=== PATIENT | male | born 1955 | race African-American/Black ===

== ENCOUNTER 2016-04-29 10:23 | Emergency (ER) | payer MEDICARE ==
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
== END 2016-04-29 11:29 | disposition home or self-care (01) ==
LOC: BURERS 10:23
DX: S13.4XXA Sprain of ligaments of cervical spine, initial encounter (principal); I25.2 Old myocardial infarction; E78.00 Pure hypercholesterolemia, unspecified; E78.5 Hyperlipidemia, unspecified; I10 Essential (primary) hypertension; I25.10 Atherosclerotic heart disease of native coronary artery without angina pectoris; F41.9 Anxiety disorder, unspecified; F32.9 Major depressive disorder, single episode, unspecified; F17.210 Nicotine dependence, cigarettes, uncomplicated; W22.8XXA Striking against or struck by other objects, initial encounter
CPT/HCPCS: 72125

== ENCOUNTER 2016-06-04 16:12 | Emergency (ER) | payer MEDICARE | END 2016-06-04 16:40 | disposition home or self-care (01) | LOC: BURERS 16:12 | DX: M54.5 Low back pain (principal); R14.0 Abdominal distension (gaseous); I25.2 Old myocardial infarction; E78.5 Hyperlipidemia, unspecified; E78.00 Pure hypercholesterolemia, unspecified; I10 Essential (primary) hypertension; F17.210 Nicotine dependence, cigarettes, uncomplicated | CPT/HCPCS: 99283 ==

== ENCOUNTER 2016-06-07 11:29 | Emergency (ER) | payer MEDICARE ==
[2016-06-07] MEDS ORDERED: Cyclobenzaprine 10 MG TAB ONE (11:40)
[2016-06-07] MEDS ORDERED: predniSONE 20 MG TAB ONE (11:41)
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
== END 2016-06-07 12:41 | disposition home or self-care (01) ==
LOC: BURERS 11:29
DX: M54.42 Lumbago with sciatica, left side (principal); I25.2 Old myocardial infarction; E78.5 Hyperlipidemia, unspecified; E78.00 Pure hypercholesterolemia, unspecified; I10 Essential (primary) hypertension; F41.9 Anxiety disorder, unspecified; F32.9 Major depressive disorder, single episode, unspecified; F17.210 Nicotine dependence, cigarettes, uncomplicated
CPT/HCPCS: 72131; J7506

== ENCOUNTER 2016-06-29 17:32 | Emergency (ER) | payer MEDICARE ==
[2016-06-29] MEDS ORDERED: HYDROcodone/Acetaminophen 10/325 mg Tablet ONE (17:56)
[2016-06-29] MEDS ORDERED: ALPRAZolam 0.5 MG TAB ONE (17:56)
== END 2016-06-29 18:03 | disposition home or self-care (01) ==
LOC: BURERS 17:32
DX: G89.29 Other chronic pain (principal); M54.9 Dorsalgia, unspecified; I25.2 Old myocardial infarction; E78.2 Mixed hyperlipidemia; I10 Essential (primary) hypertension; I25.10 Atherosclerotic heart disease of native coronary artery without angina pectoris; F41.9 Anxiety disorder, unspecified; F32.9 Major depressive disorder, single episode, unspecified; F17.210 Nicotine dependence, cigarettes, uncomplicated
CPT/HCPCS: 99283

== ENCOUNTER 2016-07-20 22:21 | Emergency (ER) | payer MEDICARE ==
[2016-07-20] MEDS ORDERED: Metoprolol Tartrate 25 MG TAB PO SCH (22:30)
[2016-07-20] MEDS ORDERED: Clopidogrel Bisulfate 75 MG TAB PO SCH (22:30)
[2016-07-20] MEDS ORDERED: Clopidogrel Bisulfate 75 MG TAB ONE (22:34)
== END 2016-07-20 22:54 | disposition home or self-care (01) ==
LOC: BURERS 22:21
DX: I10 Essential (primary) hypertension (principal); I25.2 Old myocardial infarction; E78.5 Hyperlipidemia, unspecified; E78.00 Pure hypercholesterolemia, unspecified; I25.10 Atherosclerotic heart disease of native coronary artery without angina pectoris; F41.9 Anxiety disorder, unspecified; F32.9 Major depressive disorder, single episode, unspecified; F43.10 Post-traumatic stress disorder, unspecified; F17.210 Nicotine dependence, cigarettes, uncomplicated
CPT/HCPCS: 99283

== ENCOUNTER 2016-08-06 09:23 | Emergency (ER) | payer MEDICARE ==
[2016-08-06] MEDS ORDERED: Ketorolac Tromethamine 30 MG/ML VIAL ONE (09:30)
== END 2016-08-06 10:19 | disposition home or self-care (01) ==
LOC: BURERS 09:23
DX: M54.2 Cervicalgia (principal); G89.29 Other chronic pain; I25.2 Old myocardial infarction; E78.2 Mixed hyperlipidemia; I10 Essential (primary) hypertension; I25.10 Atherosclerotic heart disease of native coronary artery without angina pectoris; F41.9 Anxiety disorder, unspecified; F32.9 Major depressive disorder, single episode, unspecified; F17.210 Nicotine dependence, cigarettes, uncomplicated
CPT/HCPCS: 96372; J1885; J2270

== ENCOUNTER 2016-09-20 05:47 | Emergency (ER) | payer MEDICARE ==
[2016-09-20] MEDS ORDERED: diphenhydrAMINE HCl 25 MG CAP ONE (06:14)
== END 2016-09-20 06:18 | disposition home or self-care (01) ==
LOC: BURERS 05:47
DX: G47.00 Insomnia, unspecified (principal); E78.5 Hyperlipidemia, unspecified; I25.2 Old myocardial infarction; I10 Essential (primary) hypertension; F17.210 Nicotine dependence, cigarettes, uncomplicated; I25.10 Atherosclerotic heart disease of native coronary artery without angina pectoris; M19.90 Unspecified osteoarthritis, unspecified site; Z79.899 Other long term (current) drug therapy
CPT/HCPCS: 99284

== ENCOUNTER 2016-11-05 10:00 | Emergency (ER) | payer MEDICARE ==
[2016-11-05] MEDS ORDERED: Ketorolac Tromethamine 30 MG/ML VIAL ONE (10:26)
[2016-11-05 11:10] LABS: Bilirubin Negative (Negative); Blood, Urine Negative (Negative); Clarity Clear (Clear); Glucose, Urine (Dipstick) 500 mg/dL (Negative); Leukocyte Negative (Negative); Nitrite Negative (Negative); Protein, Urine (Dipstick) Negative (Neg-Trace); pH, Urine 5.5 (5.0-9.0)
== END 2016-11-05 11:43 | disposition home or self-care (01) ==
LOC: BURERS 10:01
DX: M54.42 Lumbago with sciatica, left side (principal); I25.2 Old myocardial infarction; E78.1 Pure hyperglyceridemia; I10 Essential (primary) hypertension; I25.10 Atherosclerotic heart disease of native coronary artery without angina pectoris; F43.10 Post-traumatic stress disorder, unspecified; F41.9 Anxiety disorder, unspecified; F32.9 Major depressive disorder, single episode, unspecified; F17.210 Nicotine dependence, cigarettes, uncomplicated
CPT/HCPCS: 36416; 81003; 96361; 96374; 96375; J1885; J2270

== ENCOUNTER 2016-11-08 13:28 | Emergency (ER) | payer MEDICARE ==
[2016-11-08 15:04] LABS: Clarity Clear (Clear)
[2016-11-08 15:05] LABS: Bilirubin Negative (Negative); Blood, Urine Negative (Negative); Glucose, Urine (Dipstick) 500 mg/dL (Negative); Leukocyte Negative (Negative); Nitrite Negative (Negative); Protein, Urine (Dipstick) Negative (Neg-Trace); Urobilinogen 0.2 mg/dL (0.2-1.0)
== END 2016-11-08 15:40 | disposition home or self-care (01) ==
LOC: BURERS 13:28
DX: M54.42 Lumbago with sciatica, left side (principal); E10.9 Type 1 diabetes mellitus without complications; E78.5 Hyperlipidemia, unspecified; I25.10 Atherosclerotic heart disease of native coronary artery without angina pectoris; I11.9 Hypertensive heart disease without heart failure; F17.210 Nicotine dependence, cigarettes, uncomplicated
CPT/HCPCS: 81003; 96372; J2270

== ENCOUNTER 2016-12-31 19:39 | Emergency (ER) | payer MEDICARE | END 2016-12-31 19:58 | disposition home or self-care (01) | LOC: BURERS 19:39 | DX: S30.861A Insect bite (nonvenomous) of abdominal wall, initial encounter (principal); L03.311 Cellulitis of abdominal wall; E10.9 Type 1 diabetes mellitus without complications; I25.2 Old myocardial infarction; E78.2 Mixed hyperlipidemia; I10 Essential (primary) hypertension; M19.90 Unspecified osteoarthritis, unspecified site; I25.10 Atherosclerotic heart disease of native coronary artery without angina pectoris; F41.9 Anxiety disorder, unspecified; F32.9 Major depressive disorder, single episode, unspecified; F43.10 Post-traumatic stress disorder, unspecified; F17.210 Nicotine dependence, cigarettes, uncomplicated; Z79.82 Long term (current) use of aspirin; Z79.899 Other long term (current) drug therapy; W57.XXXA Bitten or stung by nonvenomous insect and other nonvenomous arthropods, initial encounter | CPT/HCPCS: 99283 ==

== ENCOUNTER 2017-01-06 10:05 | Emergency (ER) | payer MEDICARE | END 2017-01-06 10:40 | disposition home or self-care (01) | LOC: BURERS 10:05 | DX: L02.213 Cutaneous abscess of chest wall (principal); E10.9 Type 1 diabetes mellitus without complications; I25.2 Old myocardial infarction; E78.1 Pure hyperglyceridemia; F41.9 Anxiety disorder, unspecified; F32.9 Major depressive disorder, single episode, unspecified; G89.29 Other chronic pain; I25.10 Atherosclerotic heart disease of native coronary artery without angina pectoris; I10 Essential (primary) hypertension; M19.90 Unspecified osteoarthritis, unspecified site; F17.210 Nicotine dependence, cigarettes, uncomplicated; F43.10 Post-traumatic stress disorder, unspecified; Z79.82 Long term (current) use of aspirin; Z79.891 Long term (current) use of opiate analgesic; Z79.899 Other long term (current) drug therapy | CPT/HCPCS: 10060; 87070; 87077; 87186; 87205 ==

== ENCOUNTER 2017-02-07 19:59 | Emergency (ER) | payer MEDICARE ==
[2017-02-07] MEDS ORDERED: Ondansetron ODT 4 MG TAB ONE (20:13)
[2017-02-07] MEDS ORDERED: Lorazepam 0.5 MG TAB ONE (20:23)
== END 2017-02-07 20:35 | disposition home or self-care (01) ==
LOC: BURERS 19:59
DX: F11.23 Opioid dependence with withdrawal (principal); E10.9 Type 1 diabetes mellitus without complications; I25.2 Old myocardial infarction; E78.1 Pure hyperglyceridemia; I25.10 Atherosclerotic heart disease of native coronary artery without angina pectoris; I10 Essential (primary) hypertension; F41.9 Anxiety disorder, unspecified; F32.9 Major depressive disorder, single episode, unspecified; F43.10 Post-traumatic stress disorder, unspecified; F17.210 Nicotine dependence, cigarettes, uncomplicated; Z79.82 Long term (current) use of aspirin; Z79.899 Other long term (current) drug therapy
CPT/HCPCS: 99283; Q0162

== ENCOUNTER 2018-05-09 03:10 | Emergency (ER) | payer MEDICARE ==
[2018-05-09] MEDS ORDERED: Ketorolac Tromethamine 30 MG/ML VIAL ONE (03:40)
[2018-05-09] MEDS ORDERED: ALPRAZolam 0.5 MG TAB ONE ×2 (03:41)
== END 2018-05-09 03:50 | disposition home or self-care (01) ==
LOC: BURERS 03:10
DX: G89.29 Other chronic pain (principal); M54.5 Low back pain; I25.2 Old myocardial infarction; I10 Essential (primary) hypertension; I25.10 Atherosclerotic heart disease of native coronary artery without angina pectoris; F41.9 Anxiety disorder, unspecified; F43.10 Post-traumatic stress disorder, unspecified; F17.210 Nicotine dependence, cigarettes, uncomplicated; E78.1 Pure hyperglyceridemia; Z79.891 Long term (current) use of opiate analgesic; Z79.82 Long term (current) use of aspirin; Z79.899 Other long term (current) drug therapy
CPT/HCPCS: 96372; J1885

== ENCOUNTER 2018-08-19 17:11 | Emergency (ER) | payer MEDICARE, OTHER ==
[2018-08-19] MEDS ORDERED: HYDROcodone/Acetaminophen 5/325 mg Tablet ONE (17:28)
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
== END 2018-08-19 18:32 | disposition home or self-care (01) ==
LOC: BURERS 17:11
DX: S06.0X0A Concussion without loss of consciousness, initial encounter (principal); S16.1XXA Strain of muscle, fascia and tendon at neck level, initial encounter; S29.012A Strain of muscle and tendon of back wall of thorax, initial encounter; E78.2 Mixed hyperlipidemia; E11.9 Type 2 diabetes mellitus without complications; I25.2 Old myocardial infarction; I25.10 Atherosclerotic heart disease of native coronary artery without angina pectoris; F43.10 Post-traumatic stress disorder, unspecified; F41.9 Anxiety disorder, unspecified; F32.9 Major depressive disorder, single episode, unspecified; F17.210 Nicotine dependence, cigarettes, uncomplicated; Z79.899 Other long term (current) drug therapy; Z79.82 Long term (current) use of aspirin; Z79.84 Long term (current) use of oral hypoglycemic drugs; V43.62XA Car passenger injured in collision with other type car in traffic accident, initial encounter
CPT/HCPCS: 70450; 72125; 72128

== ENCOUNTER 2018-12-04 01:29 | Emergency (ER) | payer MEDICARE ==
[2018-12-04] MEDS ORDERED: ALPRAZolam 0.5 MG TAB ONE (01:48)
[2018-12-04] MEDS ORDERED: Potassium Chloride 20 MEQ TAB ONE (01:48)
== END 2018-12-04 01:51 | disposition home or self-care (01) ==
LOC: BURERS 01:29
DX: F41.9 Anxiety disorder, unspecified (principal); E87.6 Hypokalemia; F43.10 Post-traumatic stress disorder, unspecified
CPT/HCPCS: 99283

== ENCOUNTER 2018-12-07 22:17 | Emergency (ER) | payer MEDICARE ==
[2018-12-07] MEDS ORDERED: ALPRAZolam 0.5 MG TAB ONE ×2 (22:27)
== END 2018-12-07 22:34 | disposition home or self-care (01) ==
LOC: BURERS 22:17
DX: F41.1 Generalized anxiety disorder (principal); E11.9 Type 2 diabetes mellitus without complications; I25.2 Old myocardial infarction; E78.2 Mixed hyperlipidemia; I10 Essential (primary) hypertension; F43.10 Post-traumatic stress disorder, unspecified; F43.29 Adjustment disorder with other symptoms; F17.210 Nicotine dependence, cigarettes, uncomplicated; Z79.899 Other long term (current) drug therapy; Z79.82 Long term (current) use of aspirin; Z79.84 Long term (current) use of oral hypoglycemic drugs
CPT/HCPCS: 99283

== ENCOUNTER 2018-12-23 21:55 | Emergency (ER) | payer MEDICARE ==
[2018-12-23] MEDS ORDERED: ALPRAZolam 0.5 MG TAB ONE (22:06)
== END 2018-12-23 22:23 | disposition home or self-care (01) ==
LOC: BURERS 21:55
DX: F41.9 Anxiety disorder, unspecified (principal); G47.00 Insomnia, unspecified; E11.9 Type 2 diabetes mellitus without complications; I25.2 Old myocardial infarction; E78.5 Hyperlipidemia, unspecified; E78.2 Mixed hyperlipidemia; I10 Essential (primary) hypertension; I25.10 Atherosclerotic heart disease of native coronary artery without angina pectoris; F43.10 Post-traumatic stress disorder, unspecified; F32.9 Major depressive disorder, single episode, unspecified; F17.210 Nicotine dependence, cigarettes, uncomplicated
CPT/HCPCS: 99283

== ENCOUNTER 2019-02-02 15:41 | Emergency (ER) | payer MEDICARE | END 2019-02-02 16:18 | disposition home or self-care (01) | LOC: BURERS 15:41 | DX: F41.9 Anxiety disorder, unspecified (principal); F43.10 Post-traumatic stress disorder, unspecified; I25.10 Atherosclerotic heart disease of native coronary artery without angina pectoris; I25.2 Old myocardial infarction; E11.9 Type 2 diabetes mellitus without complications; E78.5 Hyperlipidemia, unspecified; I10 Essential (primary) hypertension; F17.210 Nicotine dependence, cigarettes, uncomplicated | CPT/HCPCS: 99283 ==

== ENCOUNTER → 2019-03-18 | Emergency (ER) | payer MEDICARE ==
[~2019-03-18] MED LIST: Potassium Chloride 20 MEQ TAB ONE
== END ==
LOC: BURERS 18:47
DX: E87.6 Hypokalemia (principal); I25.2 Old myocardial infarction; E11.9 Type 2 diabetes mellitus without complications; E78.5 Hyperlipidemia, unspecified; I25.10 Atherosclerotic heart disease of native coronary artery without angina pectoris; M19.90 Unspecified osteoarthritis, unspecified site; F41.9 Anxiety disorder, unspecified; F43.10 Post-traumatic stress disorder, unspecified; F17.210 Nicotine dependence, cigarettes, uncomplicated
CPT/HCPCS: 99284

== ENCOUNTER 2019-09-29 12:02 | Emergency (ER) | payer MEDICARE ==
[2019-09-29] MEDS ORDERED: Ibuprofen 800 MG TAB ONE (12:20)
== END 2019-09-29 12:30 | disposition home or self-care (01) ==
LOC: BURERS 12:02
DX: M10.9 Gout, unspecified (principal); I25.2 Old myocardial infarction; E11.9 Type 2 diabetes mellitus without complications; E78.5 Hyperlipidemia, unspecified; M19.90 Unspecified osteoarthritis, unspecified site; I10 Essential (primary) hypertension; F41.9 Anxiety disorder, unspecified; F43.10 Post-traumatic stress disorder, unspecified; F17.210 Nicotine dependence, cigarettes, uncomplicated; I25.10 Atherosclerotic heart disease of native coronary artery without angina pectoris
CPT/HCPCS: 99283

== ENCOUNTER 2019-10-03 23:16 | Emergency (ER) | payer MEDICARE ==
[2019-10-03] MEDS ORDERED: Lorazepam 0.5 MG TAB ONE (23:26)
== END 2019-10-03 23:39 | disposition home or self-care (01) ==
LOC: BURERS 23:16
DX: F13.239 Sedative, hypnotic or anxiolytic dependence with withdrawal, unspecified (principal); F41.9 Anxiety disorder, unspecified; I25.10 Atherosclerotic heart disease of native coronary artery without angina pectoris; I25.2 Old myocardial infarction; E11.9 Type 2 diabetes mellitus without complications; E78.5 Hyperlipidemia, unspecified; I10 Essential (primary) hypertension; M19.90 Unspecified osteoarthritis, unspecified site; F32.9 Major depressive disorder, single episode, unspecified; F43.10 Post-traumatic stress disorder, unspecified; F17.210 Nicotine dependence, cigarettes, uncomplicated; Z79.899 Other long term (current) drug therapy; Z79.84 Long term (current) use of oral hypoglycemic drugs
CPT/HCPCS: 99283

== ENCOUNTER 2019-10-06 20:59 | Emergency (ER) | payer MEDICARE ==
[2019-10-06] MEDS ORDERED: ALPRAZolam 0.5 MG TAB ONE (21:14)
== END 2019-10-06 21:32 | disposition home or self-care (01) ==
LOC: BURERS 20:59
DX: F41.9 Anxiety disorder, unspecified (principal); I10 Essential (primary) hypertension; I25.2 Old myocardial infarction; E11.9 Type 2 diabetes mellitus without complications; E78.5 Hyperlipidemia, unspecified; M19.90 Unspecified osteoarthritis, unspecified site; F43.10 Post-traumatic stress disorder, unspecified; F32.9 Major depressive disorder, single episode, unspecified; F17.210 Nicotine dependence, cigarettes, uncomplicated; Z95.1 Presence of aortocoronary bypass graft
CPT/HCPCS: 99283

== ENCOUNTER 2019-10-28 08:57 | Emergency (ER) | payer MEDICARE ==
[2019-10-28 09:39] LABS: #Basophils 0.1 thou/uL (0.0-0.2); #Eosinphils 0.1 thou/uL (0.0-0.7); #Monocytes 0.5 thou/uL (0.11-0.59); #Neutrophils 3.6 thou/uL (1.40-6.50); %Basophils 2.3 % (0.0-1.0); %Lymphocytes 31.7 % (21.0-51.0); %Monocytes 7.1 % (0.0-10.0); %Neutrophils 56.9 % (42.0-75.0); Hemoglobin 13.5 g/dL (14.0-18.0); Mean Corpuscular HGB CONC 30.9 g/dL (32.0-36.0); Mean Corpuscular Hemoglobin 27.8 pg (27.0-31.0); Mean Corpuscular Volume 89.9 fL (78.0-98.0); Mean Platelet Volume 6.4 fL (7.4-10.4); Platelet Count 310 thou/uL (130-400); RBC Distribution Width 13.5 % (11.5-14.5); Red Blood Cell (RBC) Count 4.86 mill/uL (4.70-6.10); White Blood Cell (WBC) Count 6.4 thou/uL (4.8-10.8)
[2019-10-28] MEDS ORDERED: Lorazepam 2 MG/ML VIAL ONE (09:46)
[2019-10-28 09:57] LABS: ALT (SGPT) 17 U/L (8-55); AST (SGOT) 18 U/L (5-34); Acetaminophen Less than 6.0 mcg/mL (10.0-30.0); Albumin 4.5 g/dL (3.4-4.8); Alcohol Less than 10 mg/dL (Less than 10); Alkaline Phosphatase 66 U/L (40-110); Anion Gap 16 mmol/L (10-20); BUN (Urea Nitrogen) 14 mg/dL (8.4-25.7); Bilirubin, Total 0.5 mg/dL (0.2-1.2); CK (CPK) 255 U/L (30-200); Calc. Creatinine Clearance 0 mL/min (70-130); Calcium 9.4 mg/dL (7.8-10.44); Carbon Dioxide 21 mmol/L (23-31); Chloride 105 mmol/L (98-107); Estimated GFR-MDRD 46; Globulin 3.6 g/dL (2.4-3.5); Glucose 137 mg/dL (80-115); Potassium 4.2 mmol/L (3.5-5.1); Protein, Total 8.1 g/dL (5.8-8.1); Salicylate Less than 8.0 mg/dL (15.0-30.0); Sodium 138 mmol/L (136-145)
[2019-10-28 10:04] LABS: Bilirubin Negative (Negative); Blood, Urine Trace (Negative); Clarity Cloudy (Clear); Glucose, Urine (Dipstick) Negative (Negative); Ketone, Urine Negative (Negative); Leukocyte Negative (Negative); Nitrite Negative (Negative); Protein, Urine (Dipstick) 30 mg/dL (Neg-Trace)
[2019-10-28 10:10] LABS: Bacteria/HPF 2+ HPF (None Seen); RBC/HPF 0-3 HPF (0-3); Squamous Epithelial 0-3 HPF (0-3); WBC/HPF 0-3 HPF (0-3)
[2019-10-28 10:12] LABS: Cocaine Metabolite Screen Not Detected (NotDetected); Methamphetamine Not Detected (NotDetected); Mucous/LPF Rare LPF (<2+); Opiate Screen Detected (NotDetected); Phencyclidine (PCP) Not Detected (NotDetected); THC/Cannabinoid Screen Not Detected (NotDetected)
[2019-10-28 10:13] LABS: Amphetamine Not Detected (NotDetected); Barbiturates Screen Not Detected (NotDetected); Benzodiazepine Screen Detected (NotDetected); Medtox Control Line Valid? VALID (VALID); Methadone Not Detected (NotDetected); Oxycodone Screen Not Detected (NotDetected); Tricyclic Screen Detected (NotDetected)
--- NOTE | 2019-10-28 10:41 | RAD ---
CHEST 1 VIEW PORTABLE: HISTORY: Chest pain, anxiety attack. COMPARISON: 05/07/2017. FINDINGS: Heart size is normal. Postop midline sternotomy. No confluent pneumonia, overt edema, or pleural ef fusion. Anterior cervical fusion changes of the lower cervical spine. IMPRESSION: No significant acute intrathoracic disease. Stable from prior study. POS: OFF
== END 2019-10-28 11:52 | disposition home or self-care (01) ==
LOC: BURERS 08:57
DX: F41.9 Anxiety disorder, unspecified (principal); R07.89 Other chest pain; F43.10 Post-traumatic stress disorder, unspecified; I10 Essential (primary) hypertension; J45.909 Unspecified asthma, uncomplicated; I25.10 Atherosclerotic heart disease of native coronary artery without angina pectoris; I25.2 Old myocardial infarction; E11.9 Type 2 diabetes mellitus without complications; E78.5 Hyperlipidemia, unspecified; M19.90 Unspecified osteoarthritis, unspecified site; F32.9 Major depressive disorder, single episode, unspecified; F17.210 Nicotine dependence, cigarettes, uncomplicated; Z95.1 Presence of aortocoronary bypass graft; Z79.899 Other long term (current) drug therapy
CPT/HCPCS: 71045; 80053; 80306; 80307; 81003; 81015; 82550; 84443; 84484; 85025; 93005; 96361; 96374; J2060

== ENCOUNTER 2019-12-28 03:26 | Emergency (ER) | payer MEDICARE ==
[2019-12-28] MEDS ORDERED: Sulfameth/Trimethoprim DS 800-160mg TAB ONE (03:59)
== END 2019-12-28 04:02 | disposition home or self-care (01) ==
LOC: BURERS 03:26
DX: L60.0 Ingrowing nail (principal); B35.1 Tinea unguium; I25.10 Atherosclerotic heart disease of native coronary artery without angina pectoris; I25.2 Old myocardial infarction; E11.9 Type 2 diabetes mellitus without complications; E78.5 Hyperlipidemia, unspecified; I10 Essential (primary) hypertension; M19.90 Unspecified osteoarthritis, unspecified site; F41.9 Anxiety disorder, unspecified; F43.10 Post-traumatic stress disorder, unspecified; F17.210 Nicotine dependence, cigarettes, uncomplicated; Z79.82 Long term (current) use of aspirin; Z79.899 Other long term (current) drug therapy
CPT/HCPCS: 99283

== ENCOUNTER 2020-01-10 16:37 | Observation (INO) | payer MEDICARE ==
[2020-01-10 17:07] LABS: #Basophils 0.1 thou/uL (0.0-0.2); #Eosinphils 0.2 thou/uL (0.0-0.7); #Lymphocytes 3.1 thou/uL (1.20-3.40); #Monocytes 0.6 thou/uL (0.11-0.59); #Neutrophils 3.1 thou/uL (1.40-6.50); %Basophils 1.2 % (0.0-1.0); %Eosinophils 3.2 % (0.0-10.0); %Lymphocytes 44.2 % (21.0-51.0); %Monocytes 7.9 % (0.0-10.0); %Neutrophils 43.5 % (42.0-75.0); Hemoglobin 14.2 g/dL (14.0-18.0); Mean Corpuscular HGB CONC 31.6 g/dL (32.0-36.0); Mean Corpuscular Hemoglobin 28.8 pg (27.0-31.0); Mean Corpuscular Volume 91.2 fL (78.0-98.0); Mean Platelet Volume 6.8 fL (7.4-10.4); Platelet Count 332 thou/uL (130-400); RBC Distribution Width 14.2 % (11.5-14.5); Red Blood Cell (RBC) Count 4.93 mill/uL (4.70-6.10); White Blood Cell (WBC) Count 7.1 thou/uL (4.8-10.8)
[2020-01-10 17:12] LABS: Prothrombin Time 13.7 sec (12.0-14.7)
[2020-01-10 17:19] LABS: D-Dimer Test Less than 0.27 *mcg/mL (0.27-0.43)
[2020-01-10 17:24] LABS: ALT (SGPT) 16 U/L (8-55); AST (SGOT) 16 U/L (5-34); Albumin 4.5 g/dL (3.4-4.8); Alkaline Phosphatase 61 U/L (40-110); Anion Gap 17 mmol/L (10-20); BUN (Urea Nitrogen) 22 mg/dL (8.4-25.7); Bilirubin, Total 0.5 mg/dL (0.2-1.2); Calc. Creatinine Clearance 0 mL/min (70-130); Calcium 9.6 mg/dL (7.8-10.44); Carbon Dioxide 23 mmol/L (23-31); Chloride 100 mmol/L (98-107); Estimated GFR-MDRD 35; Glucose 128 mg/dL (80-115); Potassium 4.5 mmol/L (3.5-5.1); Protein, Total 8.5 g/dL (5.8-8.1); Sodium 135 mmol/L (136-145)
[2020-01-10] MEDS ORDERED: ALPRAZolam 0.5 MG TAB PO PRN ×2 (18:59→21:12)
[2020-01-10] MEDS ORDERED: hydrALAZINE 25 MG TAB PO PRN (19:03)
[2020-01-10] MEDS ORDERED: HYDROcodone/Acetaminophen 10/325 mg Tablet PO PRN (19:03)
[2020-01-10] MEDS ORDERED: Cyclobenzaprine 10 MG TAB PO PRN ×2 (19:05→21:12)
[2020-01-10] MEDS ORDERED: IMIPRAMINE HCL 50 MG PO SCH (21:00)
[2020-01-10] MEDS ORDERED: Metoprolol Tartrate 25 MG TAB PO SCH (21:00)
--- NOTE | 2020-01-10 21:06 | RAD ---
AP CHEST: 01/10/20 HISTORY: Chest pain, shortness of breath. Lungs are clear. Heart and mediastinum appear normal. Postop sternotomy changes are noted. IMPRESSION: No acute process. POS: AGW
[2020-01-10] MEDS ORDERED: Acetaminophen 500 MG TAB PO PRN (21:12)
[2020-01-10] MEDS ORDERED: traMADol HCl 50 MG TAB PO PRN (21:12)
[2020-01-10] MEDS ORDERED: hydrOXYzine 25 MG TAB PO PRN (21:12)
[2020-01-10] MEDS ORDERED: Colchicine 0.6 MG TAB PO SCH (21:15)
[2020-01-10] MEDS: Sodium Chloride 0.9% 1,000 ML IV SCH (22:56)
[2020-01-11] MEDS: Sodium Chloride 0.9% 1,000 ML IV SCH (05:11)
[2020-01-11 08:31] LABS: Anion Gap 14 mmol/L (10-20); BUN (Urea Nitrogen) 21 mg/dL (8.4-25.7); Calc. Creatinine Clearance 50 mL/min (70-130); Calcium 8.4 mg/dL (7.8-10.44); Carbon Dioxide 22 mmol/L (23-31); Chloride 105 mmol/L (98-107); Estimated GFR-MDRD 46; Glucose 119 mg/dL (80-115); Potassium 4.2 mmol/L (3.5-5.1); Sodium 137 mmol/L (136-145)
[2020-01-11] MEDS ORDERED: Furosemide 40 MG TAB PO SCH (09:00)
[2020-01-11] MEDS ORDERED: Aspirin Chewable 81 MG TAB PO SCH (09:00)
[2020-01-11] MEDS ORDERED: Metoprolol Tartrate 100 MG TAB PO SCH (09:00)
[2020-01-11] MEDS ORDERED: Clopidogrel Bisulfate 75 MG TAB PO SCH ×2 (09:00)
[2020-01-11] MEDS ORDERED: Atorvastatin Calcium 40 MG TAB PO SCH (09:00)
[2020-01-11 11:06] VITALS: BP 100/54; TEMP 97.3
[2020-01-11 17:49] LABS: SARS-CoV-2 MS2 Positive; SARS-CoV-2 N Gene Negative; SARS-CoV-2 S Gene Negative; SARS-CoV-2 by NAA Not Detected (NotDetected); SARS-CoV-2 orf1ab Negative
[2020-01-11] MEDS ORDERED: FLU VACC QS2020-21(65YR UP)/PF 240 MCG/0.7 ML SYRINGE IM ONE (21:00)
--- NOTE | 2020-01-15 05:11 | DIS ---
DATE OF ADMISSION: 01/10/2020 DATE OF DISCHARGE: 01/11/2020 ADMISSION DIAGNOSES: Acute renal failure with prerenal azotemia, dehydration, and hypotension due to hypovolemia. SECONDARY DIAGNOSES: Coronary artery disease, dyslipidemia, anxiety, and chronic back pain. PROCEDURES: On 01/10/2020, chest x-ray shows no acute process. HOSPITAL COURSE: A 64-year-old male, presented to the [facility] Emergency Department yesterday evening with complaints of generalized weakness along with feeling lightheaded and short of breath with minimal exertion. The patient described symptoms of presyncope. He denies having had any nausea, vomiting, or diarrhea; also denies any upper respiratory symptoms. He denied having any fever, chills, or diaphoresis. His symptoms have been present for approximately one week and with no improvement, prompting his arrival to the emergency department. In the emergency department, he was noted to be hypotensive, for which he received a 500 mL bolus of normal saline. Lab evaluation showed acute renal failure, other labs were largely reassuring. Secondary to the patient's dehydration resulting in hypotension and acute renal failure, he was admitted overnight and provided normal saline intravenous fluids. His creatinine improved from 2.27 to 1.80 and GFR improved from 35 to 46 via overnight intravenous fluids. As of this morning, he reports to be asymptomatic in regard to his presenting symptoms and his blood pressure has improved. As far as his usual blood pressure medications, these will be modified as follows. We will discontinue amlodipine, furosemide, and hydralazine; we will decrease lisinopril from 40 mg to 5 mg daily and metoprolol will be decreased from 100 mg twice a day to 25 mg twice a day. I will ask the patient to follow up next week in the clinic to reassess his blood pressure and hydration status. As of this time, the patient is improved in regard to his renal function and blood pressure and is amenable to discharge home with the specified modified blood pressure medication regimen and encouragement in regard to improving hydration status. DISPOSITION: The patient will discharge home and may follow up with myself next week for repeat metabolic panel and reassessment of his blood pressure. DISCHARGE MEDICATIONS: Include; 1. Tylenol 1000 mg q.8 hours p.r.n. 2. Alprazolam 0.5 mg q.8 hours p.r.n. 3. Aspirin 81 mg daily. 4. Atorvastatin 40 mg at bedtime. 5. Plavix 75 mg daily. 6. Cyclobenzaprine 10 mg q.8 hours p.r.n. 7. Hydrocodone 10/325 q.8 hours p.r.n. 8. Hydroxyzine 25 mg b.i.d. p.r.n. 9. Imipramine 50 mg daily. 10. Lisinopril 5 mg daily. 11. Metoprolol tartrate 25 mg b.i.d. Discharge time taken for the patient greater than 30 minutes. Job ID: [id number]
== END 2020-01-11 14:25 | disposition home or self-care (01) ==
LOC: BURERS 16:37 → BURMED 17:45
PROVIDERS: ADMIT Family Medicine; ATTEND Family Medicine
DX: E86.1 Hypovolemia (principal); E86.0 Dehydration; I95.9 Hypotension, unspecified; N17.9 Acute kidney failure, unspecified; I25.10 Atherosclerotic heart disease of native coronary artery without angina pectoris; E78.5 Hyperlipidemia, unspecified; F41.9 Anxiety disorder, unspecified; G89.29 Other chronic pain; M54.9 Dorsalgia, unspecified; I25.2 Old myocardial infarction; E11.9 Type 2 diabetes mellitus without complications; M19.90 Unspecified osteoarthritis, unspecified site; F32.9 Major depressive disorder, single episode, unspecified; F17.210 Nicotine dependence, cigarettes, uncomplicated; Z79.02 Long term (current) use of antithrombotics/antiplatelets; Z79.82 Long term (current) use of aspirin; Z79.84 Long term (current) use of oral hypoglycemic drugs; Z79.899 Other long term (current) drug therapy; Z88.8 Allergy status to other drugs, medicaments and biological substances; Z95.1 Presence of aortocoronary bypass graft; Z98.1 Arthrodesis status; Z20.828 Contact with and (suspected) exposure to other viral communicable diseases
CPT/HCPCS: 36415; 71045; 80048; 80053; 83605; 83880; 84484; 85025; 85379; 85610; 87635; 93005; G0378; J7050; U0003

== ENCOUNTER 2020-02-08 22:46 | Emergency (ER) | payer MEDICARE ==
[2020-02-08] MEDS ORDERED: Aspirin Chewable 81 MG TAB ONE (22:56)
[2020-02-08] MEDS ORDERED: Lorazepam 2 MG/ML VIAL ONE (23:05)
[2020-02-08] MEDS ORDERED: Metoprolol Tartrate 5 MG/5 ML VIAL ONE ×3 (23:14→23:58)
[2020-02-08 23:33] LABS: ALT (SGPT) 19 U/L (8-55); AST (SGOT) 19 U/L (5-34); Albumin 4.5 g/dL (3.4-4.8); Alkaline Phosphatase 62 U/L (40-110); Anion Gap 17 mmol/L (10-20); BUN (Urea Nitrogen) 8 mg/dL (8.4-25.7); Bilirubin, Total 0.6 mg/dL (0.2-1.2); Calc. Creatinine Clearance 0 mL/min (70-130); Calcium 9.6 mg/dL (7.8-10.44); Carbon Dioxide 23 mmol/L (23-31); Chloride 103 mmol/L (98-107); Globulin 3.9 g/dL (2.4-3.5); Glucose 103 mg/dL (80-115); Lipase 24 U/L (8-78); Potassium 3.6 mmol/L (3.5-5.1); Protein, Total 8.4 g/dL (5.8-8.1); Sodium 139 mmol/L (136-145)
--- NOTE | 2020-02-08 23:39 | RAD ---
PORTABLE CHEST: Date: 02/08/2020 PROVIDED CLINICAL HISTORY: Chest pain. FINDINGS: Comparison with 01/10/2020. Cardiac and mediastinal silhouette is within normal limits. Median sternotomy changes are seen. No fo lisa consolidation, pleural fluid, or pneumothorax apparent. IMPRESSION: No evidence for an acute cardiopulmonary process. POS: CHIN
[2020-02-08 23:43] LABS: Hemoglobin 15.6 g/dL (14.0-18.0); Mean Corpuscular HGB CONC 31.8 g/dL (32.0-36.0); Mean Corpuscular Hemoglobin 28.3 pg (27.0-31.0); Mean Corpuscular Volume 88.9 fL (78.0-98.0); Mean Platelet Volume 7.3 fL (7.4-10.4); Platelet Count 295 thou/uL (130-400); Red Blood Cell (RBC) Count 5.51 mill/uL (4.70-6.10)
[2020-02-08 23:48] LABS: Lymphocytes 33 % (21-51); MDiff Complete? YES; Monocytes 8 % (0-10); Neutrophil 55 % (42-75); Platelet Morphology Comment Appears Adequate; RBC Morphology Normal; Reactive Lymphocytes 4 % (0-10)
[2020-02-09] MEDS ORDERED: Nitroglycerin 0.4 MG TAB 1 EACH ONE (00:18)
[2020-02-09] MEDS ORDERED: Lorazepam 2 MG/ML VIAL ONE (00:31)
[2020-02-09 02:09] LABS: Bilirubin Negative (Negative); Blood, Urine Negative (Negative); Clarity Clear (Clear); Glucose, Urine (Dipstick) Negative (Negative); Ketone, Urine Negative (Negative); Leukocyte Negative (Negative); Nitrite Negative (Negative); Protein, Urine (Dipstick) Negative (Neg-Trace); Specific Gravity, Urine 1.015 (1.005-1.030); pH, Urine 6.5 (5.0-9.0)
[2020-02-09 02:14] LABS: Amphetamine Not Detected (NotDetected); Barbiturates Screen Not Detected (NotDetected); Benzodiazepine Screen Detected (NotDetected); Cocaine Metabolite Screen Not Detected (NotDetected); Medtox Control Line Valid? VALID (VALID); Methadone Not Detected (NotDetected); Methamphetamine Not Detected (NotDetected); Opiate Screen Detected (NotDetected); Oxycodone Screen Not Detected (NotDetected); Phencyclidine (PCP) Not Detected (NotDetected); THC/Cannabinoid Screen Not Detected (NotDetected); Tricyclic Screen Detected (NotDetected)
[2020-02-09 02:33] LABS: Troponin I 0.012 ng/mL (< 0.028)
== END 2020-02-09 02:20 | disposition short-term general hospital (02) ==
LOC: BURERS 22:46
DX: R07.9 Chest pain, unspecified (principal); F41.9 Anxiety disorder, unspecified; I25.10 Atherosclerotic heart disease of native coronary artery without angina pectoris; I25.2 Old myocardial infarction; E11.9 Type 2 diabetes mellitus without complications; E78.5 Hyperlipidemia, unspecified; I10 Essential (primary) hypertension; M19.90 Unspecified osteoarthritis, unspecified site; F43.10 Post-traumatic stress disorder, unspecified; Z79.82 Long term (current) use of aspirin; Z79.899 Other long term (current) drug therapy
CPT/HCPCS: 36415; 71045; 80053; 80306; 81003; 83690; 84443; 84484; 85025; 85379; 93005; 94760; 96374; 96375; 96376; J2060

== ENCOUNTER 2020-04-07 06:04 | Emergency (ER) | payer MEDICARE ==
[2020-04-07] MEDS ORDERED: Meclizine HCl 25 MG TAB ONE (06:35)
== END 2020-04-07 06:50 | disposition home or self-care (01) ==
LOC: BURERS 06:04
DX: H83.09 Labyrinthitis, unspecified ear (principal); Z79.899 Other long term (current) drug therapy; Z79.891 Long term (current) use of opiate analgesic; I25.2 Old myocardial infarction; E11.9 Type 2 diabetes mellitus without complications; E78.5 Hyperlipidemia, unspecified; I10 Essential (primary) hypertension; M19.90 Unspecified osteoarthritis, unspecified site; F17.210 Nicotine dependence, cigarettes, uncomplicated
CPT/HCPCS: 99283

== ENCOUNTER 2020-06-22 21:46 | Emergency (ER) | payer MEDICARE ==
[2020-06-22] MEDS ORDERED: ALPRAZolam 0.5 MG TAB ONE (22:17)
== END 2020-06-22 22:20 | disposition home or self-care (01) ==
LOC: BURERS 21:46
DX: F41.9 Anxiety disorder, unspecified (principal); R07.9 Chest pain, unspecified; I25.10 Atherosclerotic heart disease of native coronary artery without angina pectoris; I25.2 Old myocardial infarction; E11.9 Type 2 diabetes mellitus without complications; E78.5 Hyperlipidemia, unspecified; I10 Essential (primary) hypertension; M19.90 Unspecified osteoarthritis, unspecified site; F17.210 Nicotine dependence, cigarettes, uncomplicated; Z79.899 Other long term (current) drug therapy; Z79.82 Long term (current) use of aspirin; Z79.84 Long term (current) use of oral hypoglycemic drugs
CPT/HCPCS: 99284

== ENCOUNTER 2020-06-27 09:59 | Emergency (ER) | payer MEDICARE ==
[2020-06-27] MEDS ORDERED: Lorazepam 2 MG/ML VIAL ONE ×2 (10:18→11:33)
[2020-06-27 10:49] LABS: #Basophils 0.1 thou/uL (0.0-0.2); #Eosinphils 0.1 thou/uL (0.0-0.7); #Lymphocytes 1.5 thou/uL (1.20-3.40); #Monocytes 0.3 thou/uL (0.11-0.59); #Neutrophils 4.1 thou/uL (1.40-6.50); %Basophils 1.4 % (0.0-1.0); %Eosinophils 1.3 % (0.0-10.0); %Lymphocytes 24.9 % (21.0-51.0); %Monocytes 4.7 % (0.0-10.0); %Neutrophils 67.8 % (42.0-75.0); Hemoglobin 13.1 g/dL (14.0-18.0); Mean Corpuscular HGB CONC 32.7 g/dL (32.0-36.0); Mean Corpuscular Hemoglobin 27.9 pg (27.0-31.0); Mean Corpuscular Volume 85.5 fL (78.0-98.0); Mean Platelet Volume 6.7 fL (7.4-10.4); Platelet Count 314 thou/uL (130-400)
[2020-06-27 11:03] LABS: ALT (SGPT) 15 U/L (8-55); AST (SGOT) 20 U/L (5-34); Albumin 4.1 g/dL (3.4-4.8); Alkaline Phosphatase 67 U/L (40-110); Anion Gap 17 mmol/L (10-20); BUN (Urea Nitrogen) 10 mg/dL (8.4-25.7); Bilirubin, Total 0.5 mg/dL (0.2-1.2); Calc. Creatinine Clearance 0 mL/min (70-130); Calcium 9.1 mg/dL (7.8-10.44); Carbon Dioxide 20 mmol/L (23-31); Chloride 105 mmol/L (98-107); Globulin 3.3 g/dL (2.4-3.5); Glucose 192 mg/dL (80-115); Potassium 3.2 mmol/L (3.5-5.1); Protein, Total 7.4 g/dL (5.8-8.1); Sodium 139 mmol/L (136-145)
[2020-06-27] MEDS ORDERED: Aspirin Chewable 81 MG TAB ONE (11:49)
[2020-06-27] MEDS ORDERED: ALPRAZolam 0.5 MG TAB ONE (12:18)
== END 2020-06-27 12:29 | disposition home or self-care (01) ==
LOC: BURERS 09:59
DX: F41.9 Anxiety disorder, unspecified (principal); R07.9 Chest pain, unspecified; I25.2 Old myocardial infarction; E11.9 Type 2 diabetes mellitus without complications; E78.5 Hyperlipidemia, unspecified; I10 Essential (primary) hypertension; F17.210 Nicotine dependence, cigarettes, uncomplicated; I25.810 Atherosclerosis of coronary artery bypass graft(s) without angina pectoris
CPT/HCPCS: 36415; 71045; 80053; 83880; 84484; 85025; 93005; 96374; 96376; J2060

== ENCOUNTER 2020-07-21 16:19 | Emergency (ER) | payer MEDICARE ==
[2020-07-21] MEDS ORDERED: Aspirin Chewable 81 MG TAB ONE (17:05)
[2020-07-21] MEDS ORDERED: hydrOXYzine 25 MG TAB ONE (17:05)
[2020-07-21] MEDS ORDERED: Acetaminophen 500 MG TAB ONE (17:05)
[2020-07-21 17:20] LABS: #Basophils 0.1 thou/uL (0.0-0.2); #Eosinphils 0.2 thou/uL (0.0-0.7); #Monocytes 0.4 thou/uL (0.11-0.59); #Neutrophils 3.7 thou/uL (1.40-6.50); %Basophils 1.5 % (0.0-1.0); %Eosinophils 3.5 % (0.0-10.0); %Lymphocytes 30.7 % (21.0-51.0); %Neutrophils 58.3 % (42.0-75.0); Hemoglobin 13.7 g/dL (14.0-18.0); Mean Corpuscular HGB CONC 31.7 g/dL (32.0-36.0); Mean Corpuscular Volume 85.2 fL (78.0-98.0); Mean Platelet Volume 6.2 fL (7.4-10.4); Platelet Count 397 thou/uL (130-400); RBC Distribution Width 14.3 % (11.5-14.5); Red Blood Cell (RBC) Count 5.08 mill/uL (4.70-6.10); White Blood Cell (WBC) Count 6.4 thou/uL (4.8-10.8)
[2020-07-21 17:39] LABS: ALT (SGPT) 22 U/L (8-55); AST (SGOT) 24 U/L (5-34); Albumin 4.5 g/dL (3.4-4.8); Alkaline Phosphatase 75 U/L (40-110); Anion Gap 14 mmol/L (10-20); BUN (Urea Nitrogen) 11 mg/dL (8.4-25.7); Bilirubin, Total 0.5 mg/dL (0.2-1.2); Calc. Creatinine Clearance 0 mL/min (70-130); Calcium 9.6 mg/dL (7.8-10.44); Carbon Dioxide 26 mmol/L (23-31); Chloride 104 mmol/L (98-107); Globulin 3.8 g/dL (2.4-3.5); Glucose 136 mg/dL (80-115); Lipase 50 U/L (8-78); Potassium 3.6 mmol/L (3.5-5.1); Protein, Total 8.3 g/dL (5.8-8.1); Sodium 140 mmol/L (136-145)
[2020-07-21 19:05] LABS: Acetaminophen Less than 6.0 mcg/mL (10.0-30.0); Alcohol Less than 10 mg/dL (Less than 10); CK (CPK) 385 U/L (30-200); Salicylate Less than 8.0 mg/dL (15.0-30.0)
[2020-07-21] MEDS ORDERED: Lorazepam 0.5 MG TAB ONE (19:19)
[2020-07-21 19:22] LABS: THC/Cannabinoid Screen Not Detected (NotDetected)
[2020-07-21 19:23] LABS: Amphetamine Not Detected (NotDetected); Barbiturates Screen Not Detected (NotDetected); Benzodiazepine Screen Detected (NotDetected); Cocaine Metabolite Screen Not Detected (NotDetected); Medtox Control Line Valid? VALID (VALID); Methadone Not Detected (NotDetected); Methamphetamine Not Detected (NotDetected); Opiate Screen Detected (NotDetected); Oxycodone Screen Not Detected (NotDetected); Phencyclidine (PCP) Not Detected (NotDetected); Tricyclic Screen Detected (NotDetected)
[2020-07-21] MEDS ORDERED: ALPRAZolam 0.5 MG TAB ONE (20:13)
[2020-07-22] MEDS ORDERED: ALPRAZolam 0.5 MG TAB ONE (00:05)
[2020-07-22] MEDS ORDERED: Metoprolol Tartrate 5 MG/5 ML VIAL ONE (01:03)
== END 2020-07-22 01:59 | disposition home or self-care (01) ==
LOC: BURERS 16:19
DX: F43.20 Adjustment disorder, unspecified (principal); F41.9 Anxiety disorder, unspecified; F13.20 Sedative, hypnotic or anxiolytic dependence, uncomplicated; F43.10 Post-traumatic stress disorder, unspecified; I25.10 Atherosclerotic heart disease of native coronary artery without angina pectoris; I25.2 Old myocardial infarction; E11.9 Type 2 diabetes mellitus without complications; E78.5 Hyperlipidemia, unspecified; I10 Essential (primary) hypertension; M19.90 Unspecified osteoarthritis, unspecified site; F17.210 Nicotine dependence, cigarettes, uncomplicated; Z79.899 Other long term (current) drug therapy; Z79.82 Long term (current) use of aspirin; Z79.84 Long term (current) use of oral hypoglycemic drugs
CPT/HCPCS: 36415; 71045; 80053; 80306; 80307; 82550; 83690; 84443; 84484; 85025; 93005

== ENCOUNTER 2020-08-17 08:02 | Emergency (ER) | payer MEDICARE | END 2020-08-17 08:45 | disposition home or self-care (01) | LOC: BURERS 08:02 | DX: G47.00 Insomnia, unspecified (principal); T43.295A Adverse effect of other antidepressants, initial encounter; F41.9 Anxiety disorder, unspecified; I25.10 Atherosclerotic heart disease of native coronary artery without angina pectoris; I25.2 Old myocardial infarction; E11.9 Type 2 diabetes mellitus without complications; E78.5 Hyperlipidemia, unspecified; I10 Essential (primary) hypertension; M19.90 Unspecified osteoarthritis, unspecified site; F17.210 Nicotine dependence, cigarettes, uncomplicated; Z79.899 Other long term (current) drug therapy; Z79.82 Long term (current) use of aspirin; Z79.84 Long term (current) use of oral hypoglycemic drugs | CPT/HCPCS: 99283 ==

== ENCOUNTER 2020-08-18 05:39 | Emergency (ER) | payer MEDICARE | END 2020-08-18 06:08 | disposition home or self-care (01) | LOC: BURERS 05:39 | DX: G47.00 Insomnia, unspecified (principal); I25.10 Atherosclerotic heart disease of native coronary artery without angina pectoris; I25.2 Old myocardial infarction; E11.9 Type 2 diabetes mellitus without complications; E78.5 Hyperlipidemia, unspecified; I10 Essential (primary) hypertension; M19.90 Unspecified osteoarthritis, unspecified site; F17.210 Nicotine dependence, cigarettes, uncomplicated; Z79.899 Other long term (current) drug therapy; Z79.82 Long term (current) use of aspirin; Z79.84 Long term (current) use of oral hypoglycemic drugs; Z79.02 Long term (current) use of antithrombotics/antiplatelets | CPT/HCPCS: 99283 ==

== ENCOUNTER 2020-08-27 01:45 | Emergency (ER) | payer MEDICARE ==
[2020-08-27 02:31] LABS: #Basophils 0.1 thou/uL (0.0-0.2); #Eosinphils 0.2 thou/uL (0.0-0.7); #Lymphocytes 2.4 thou/uL (1.20-3.40); #Monocytes 0.6 thou/uL (0.11-0.59); %Basophils 1.1 % (0.0-1.0); %Eosinophils 2.7 % (0.0-10.0); %Lymphocytes 38.3 % (21.0-51.0); %Monocytes 9.8 % (0.0-10.0); Mean Corpuscular HGB CONC 31.3 g/dL (32.0-36.0); Mean Corpuscular Hemoglobin 25.8 pg (27.0-31.0); Mean Corpuscular Volume 82.4 fL (78.0-98.0); Mean Platelet Volume 5.9 fL (7.4-10.4); Platelet Count 403 thou/uL (130-400); RBC Distribution Width 13.9 % (11.5-14.5); Red Blood Cell (RBC) Count 4.27 mill/uL (4.70-6.10); White Blood Cell (WBC) Count 6.2 thou/uL (4.8-10.8)
[2020-08-27 02:46] LABS: ALT (SGPT) 12 U/L (8-55); AST (SGOT) 18 U/L (5-34); Albumin 4.1 g/dL (3.4-4.8); Alkaline Phosphatase 53 U/L (40-110); Anion Gap 15 mmol/L (10-20); BUN (Urea Nitrogen) 9 mg/dL (8.4-25.7); Bilirubin, Total 0.5 mg/dL (0.2-1.2); Calc. Creatinine Clearance 0 mL/min (70-130); Calcium 9.1 mg/dL (7.8-10.44); Carbon Dioxide 26 mmol/L (23-31); Chloride 104 mmol/L (98-107); Globulin 3.2 g/dL (2.4-3.5); Glucose 94 mg/dL (80-115); Potassium 3.1 mmol/L (3.5-5.1); Protein, Total 7.3 g/dL (5.8-8.1); Sodium 142 mmol/L (136-145)
== END 2020-08-27 03:06 | disposition home or self-care (01) ==
LOC: BURERS 01:45
DX: R42 Dizziness and giddiness (principal); I65.29 Occlusion and stenosis of unspecified carotid artery; I25.10 Atherosclerotic heart disease of native coronary artery without angina pectoris; I25.2 Old myocardial infarction; E11.9 Type 2 diabetes mellitus without complications; I10 Essential (primary) hypertension; M19.90 Unspecified osteoarthritis, unspecified site; F17.210 Nicotine dependence, cigarettes, uncomplicated; Z79.82 Long term (current) use of aspirin; Z79.899 Other long term (current) drug therapy
CPT/HCPCS: 36415; 71045; 80053; 84484; 85025; 93005

== ENCOUNTER 2020-12-08 05:04 | Emergency (ER) | payer MEDICARE ==
[2020-12-08] MEDS ORDERED: Lorazepam 0.5 MG TAB ONE (05:30)
== END 2020-12-08 05:33 | disposition home or self-care (01) ==
LOC: BURERS 05:04
DX: F41.9 Anxiety disorder, unspecified (principal); I25.10 Atherosclerotic heart disease of native coronary artery without angina pectoris; I25.2 Old myocardial infarction; E11.9 Type 2 diabetes mellitus without complications; E78.5 Hyperlipidemia, unspecified; I10 Essential (primary) hypertension; F17.210 Nicotine dependence, cigarettes, uncomplicated; Z79.82 Long term (current) use of aspirin; Z79.02 Long term (current) use of antithrombotics/antiplatelets; Z79.899 Other long term (current) drug therapy; Z79.84 Long term (current) use of oral hypoglycemic drugs
CPT/HCPCS: 99283

== ENCOUNTER 2020-12-13 21:26 | Emergency (ER) | payer MEDICARE ==
[2020-12-13] MEDS ORDERED: Lorazepam 0.5 MG TAB ONE ×2 (22:15→22:17)
[2020-12-13] MEDS ORDERED: ALPRAZolam 0.5 MG TAB ONE (22:19)
== END 2020-12-13 22:22 | disposition home or self-care (01) ==
LOC: BURERS 21:26
DX: F41.0 Panic disorder [episodic paroxysmal anxiety] (principal); I25.10 Atherosclerotic heart disease of native coronary artery without angina pectoris; I25.2 Old myocardial infarction; E11.9 Type 2 diabetes mellitus without complications; E78.5 Hyperlipidemia, unspecified; I10 Essential (primary) hypertension; M19.90 Unspecified osteoarthritis, unspecified site; F17.210 Nicotine dependence, cigarettes, uncomplicated; Z79.82 Long term (current) use of aspirin; Z79.899 Other long term (current) drug therapy; Z79.891 Long term (current) use of opiate analgesic
CPT/HCPCS: 99283

== ENCOUNTER 2021-02-11 14:30 | Emergency (ER) | payer MEDICARE | END 2021-02-11 16:15 | disposition home or self-care (01) | LOC: BURERS 14:30 | DX: F41.9 Anxiety disorder, unspecified (principal); G47.00 Insomnia, unspecified; I10 Essential (primary) hypertension; E11.9 Type 2 diabetes mellitus without complications; I25.10 Atherosclerotic heart disease of native coronary artery without angina pectoris; I25.2 Old myocardial infarction; E78.5 Hyperlipidemia, unspecified; M19.90 Unspecified osteoarthritis, unspecified site; F17.210 Nicotine dependence, cigarettes, uncomplicated; Z79.82 Long term (current) use of aspirin; Z79.84 Long term (current) use of oral hypoglycemic drugs; Z79.899 Other long term (current) drug therapy | CPT/HCPCS: 99283 ==

== ENCOUNTER 2021-03-02 01:47 | Emergency (ER) | payer MEDICARE | END 2021-03-02 02:14 | disposition home or self-care (01) | LOC: BURERS 01:47 | DX: Z76.0 Encounter for issue of repeat prescription (principal); F41.9 Anxiety disorder, unspecified; I25.2 Old myocardial infarction; I10 Essential (primary) hypertension; E11.9 Type 2 diabetes mellitus without complications; I25.10 Atherosclerotic heart disease of native coronary artery without angina pectoris; M19.90 Unspecified osteoarthritis, unspecified site; E78.5 Hyperlipidemia, unspecified; F17.210 Nicotine dependence, cigarettes, uncomplicated; Z79.899 Other long term (current) drug therapy; Z79.82 Long term (current) use of aspirin | CPT/HCPCS: 99281 ==

== ENCOUNTER 2021-03-09 15:05 | Inpatient (IN) | payer MEDICARE ==
[2021-03-09 17:51] VITALS: BMI 29.7
[2021-03-09] MEDS ORDERED: Ondansetron ODT 4 MG TAB SL PRN (18:56)
[2021-03-09] MEDS ORDERED: Senokot S 8.6-50 MG TAB PO PRN (18:58)
[2021-03-09] MEDS ORDERED: Nicotine 14 MG PATCH TD PRN (19:55)
[2021-03-09] MEDS ORDERED: Acetaminophen 325 MG TAB PO PRN (19:55)
[2021-03-09] MEDS ORDERED: ALPRAZolam 0.5 MG TAB PO PRN (19:59)
[2021-03-09] MEDS: Famotidine 20 MG TAB PO SCH (20:19)
[2021-03-09] MEDS: Rosuvastatin 10 MG TAB PO SCH (20:19)
[2021-03-09] MEDS: Metoprolol Tartrate 25 MG TAB PO SCH (20:20)
[2021-03-09] MEDS: HYDROcodone/Acetaminophen 10/325 mg Tablet PO PRN (20:20)
[2021-03-09] MEDS: Cyclobenzaprine 10 MG TAB PO PRN (20:20)
[2021-03-09] MEDS: ALPRAZolam 0.5 MG TAB PO SCH (20:20)
[2021-03-09] MEDS: IMIPRAMINE HCL 50 MG PO SCH (21:08)
[2021-03-10] MEDS: HYDROcodone/Acetaminophen 10/325 mg Tablet PO PRN ×3 (08:44→23:23)
[2021-03-10] MEDS: Metoprolol Tartrate 25 MG TAB PO SCH ×2 (08:47→21:25)
[2021-03-10] MEDS: Famotidine 20 MG TAB PO SCH ×2 (08:47→21:25)
[2021-03-10] MEDS: Furosemide 40 MG TAB PO SCH (08:48)
[2021-03-10] MEDS: Lisinopril 5 MG TAB PO SCH (08:48)
[2021-03-10] MEDS: Potassium Chloride 20 MEQ TAB PO SCH (08:48)
[2021-03-10] MEDS: Aspirin Chewable 81 MG TAB PO SCH (08:48)
[2021-03-10] MEDS: Clopidogrel Bisulfate 75 MG TAB PO SCH (08:48)
[2021-03-10] MEDS: Folic Acid 1 MG TAB PO SCH (08:48)
[2021-03-10] MEDS: Amlodipine 10 MG TAB PO SCH (08:50)
[2021-03-10] MEDS ORDERED: Acetaminophen 325 MG TAB PO PRN (13:24)
[2021-03-10] MEDS: IMIPRAMINE HCL 50 MG PO SCH (20:12)
[2021-03-10] MEDS: Cyclobenzaprine 10 MG TAB PO PRN (21:25)
[2021-03-10] MEDS: Rosuvastatin 10 MG TAB PO SCH (21:25)
[2021-03-10] MEDS: ALPRAZolam 0.5 MG TAB PO SCH (21:26)
[2021-03-11 05:55] VITALS: TEMP 97.9
[2021-03-11] MEDS: Famotidine 20 MG TAB PO SCH (10:57)
[2021-03-11] MEDS: Lisinopril 5 MG TAB PO SCH (10:57)
[2021-03-11] MEDS: Amlodipine 10 MG TAB PO SCH (10:58)
[2021-03-11] MEDS: Clopidogrel Bisulfate 75 MG TAB PO SCH (10:58)
[2021-03-11] MEDS: Metoprolol Tartrate 25 MG TAB PO SCH (10:58)
[2021-03-11] MEDS: Potassium Chloride 20 MEQ TAB PO SCH (10:59)
[2021-03-11] MEDS: Folic Acid 1 MG TAB PO SCH (10:59)
[2021-03-11] MEDS: Furosemide 40 MG TAB PO SCH (10:59)
[2021-03-11] MEDS: Aspirin Chewable 81 MG TAB PO SCH (10:59)
[2021-03-11 11:01] VITALS: BP 156/88
[2021-03-11] MEDS: HYDROcodone/Acetaminophen 10/325 mg Tablet PO PRN (11:06)
== END 2021-03-11 16:15 | disposition home or self-care (01) | DRG 948 ==
LOC: BURMED 15:05
PROVIDERS: ADMIT Family Medicine; ATTEND Family Medicine
DX: R53.1 Weakness (principal); I10 Essential (primary) hypertension; E11.9 Type 2 diabetes mellitus without complications; G89.29 Other chronic pain; M54.50 Low back pain, unspecified; M54.2 Cervicalgia; I25.10 Atherosclerotic heart disease of native coronary artery without angina pectoris; M19.90 Unspecified osteoarthritis, unspecified site; F43.10 Post-traumatic stress disorder, unspecified; I73.9 Peripheral vascular disease, unspecified; E78.5 Hyperlipidemia, unspecified; F17.210 Nicotine dependence, cigarettes, uncomplicated; F41.9 Anxiety disorder, unspecified; Z20.822 Contact with and (suspected) exposure to COVID-19; F32.A Depression, unspecified; Z95.1 Presence of aortocoronary bypass graft; I25.2 Old myocardial infarction; Z88.8 Allergy status to other drugs, medicaments and biological substances; Z79.82 Long term (current) use of aspirin; Z79.02 Long term (current) use of antithrombotics/antiplatelets; Z79.899 Other long term (current) drug therapy; Z98.890 Other specified postprocedural states; Z98.1 Arthrodesis status

== ENCOUNTER 2021-03-21 16:59 | Emergency (ER) | payer MEDICARE ==
[2021-03-21] MEDS ORDERED: ALPRAZolam 0.5 MG TAB ONE (17:15)
== END 2021-03-21 17:23 | disposition home or self-care (01) ==
LOC: BURERS 16:59
DX: F41.9 Anxiety disorder, unspecified (principal); I25.2 Old myocardial infarction; I10 Essential (primary) hypertension; E78.5 Hyperlipidemia, unspecified; M19.90 Unspecified osteoarthritis, unspecified site; I25.10 Atherosclerotic heart disease of native coronary artery without angina pectoris; E11.9 Type 2 diabetes mellitus without complications; F17.210 Nicotine dependence, cigarettes, uncomplicated; Z79.82 Long term (current) use of aspirin; Z79.899 Other long term (current) drug therapy
CPT/HCPCS: 99283

== ENCOUNTER 2021-04-05 12:30 | Emergency (ER) | payer MEDICARE ==
[2021-04-05] MEDS ORDERED: Lorazepam 0.5 MG TAB ONE (13:40)
[2021-04-05 13:49] LABS: #Basophils 0.1 thou/uL (0.0-0.2); #Eosinphils 0.1 thou/uL (0.0-0.7); #Lymphocytes 1.3 thou/uL (1.20-3.40); #Monocytes 0.5 thou/uL (0.11-0.59); #Neutrophils 1.4 thou/uL (1.40-6.50); %Basophils 2.6 % (0.0-1.0); %Lymphocytes 37.3 % (21.0-51.0); %Monocytes 13.3 % (0.0-10.0); %Neutrophils 42.9 % (42.0-75.0); Hemoglobin 14.8 g/dL (14.0-18.0); Mean Corpuscular HGB CONC 31.6 g/dL (32.0-36.0); Mean Corpuscular Hemoglobin 24.7 pg (27.0-31.0); Mean Platelet Volume 6.5 fL (7.4-10.4); Platelet Count 336 thou/uL (130-400); RBC Distribution Width 16.6 % (11.5-14.5); White Blood Cell (WBC) Count 3.4 thou/uL (4.8-10.8)
[2021-04-05 13:58] LABS: ALT (SGPT) 18 U/L (8-55); AST (SGOT) 21 U/L (5-34); Albumin 4.5 g/dL (3.4-4.8); Alkaline Phosphatase 69 U/L (40-110); Anion Gap 15 mmol/L (10-20); BUN (Urea Nitrogen) 8 mg/dL (8.4-25.7); Bilirubin, Total 0.6 mg/dL (0.2-1.2); Calc. Creatinine Clearance 0 mL/min (70-130); Calcium 9.4 mg/dL (7.8-10.44); Carbon Dioxide 24 mmol/L (23-31); Chloride 103 mmol/L (98-107); Globulin 3.9 g/dL (2.4-3.5); Glucose 130 mg/dL (80-115); Potassium 3.1 mmol/L (3.5-5.1); Protein, Total 8.4 g/dL (5.8-8.1); Sodium 139 mmol/L (136-145)
[2021-04-05 14:18] LABS: Bilirubin Negative (Negative); Blood, Urine Negative (Negative); Clarity Clear (Clear); Glucose, Urine (Dipstick) Negative (Negative); Ketone, Urine Negative (Negative); Leukocyte Negative (Negative); Nitrite Negative (Negative); Protein, Urine (Dipstick) Negative (Neg-Trace); Specific Gravity, Urine 1.015 (1.005-1.030)
[2021-04-05 14:25] LABS: Anisocytosis SLIGHT = 6-15 cells (100X) (0-5/hpf); Elliptocytes SLIGHT = 2-5 cells (100X) (0-1/hpf); MDiff Complete? YES; Poikilocytosis SLIGHT = 6-15 cells (100X) (0-5/hpf)
[2021-04-05] MEDS ORDERED: traMADol HCl 50 MG TAB ONE (14:33)
== END 2021-04-05 14:50 | disposition home or self-care (01) ==
LOC: BURERS 12:30
DX: R51.9 Headache, unspecified (principal); R20.2 Paresthesia of skin; F41.1 Generalized anxiety disorder; I25.10 Atherosclerotic heart disease of native coronary artery without angina pectoris; I25.2 Old myocardial infarction; E11.9 Type 2 diabetes mellitus without complications; E78.5 Hyperlipidemia, unspecified; I10 Essential (primary) hypertension; M19.90 Unspecified osteoarthritis, unspecified site; F17.210 Nicotine dependence, cigarettes, uncomplicated; Z79.82 Long term (current) use of aspirin; Z79.02 Long term (current) use of antithrombotics/antiplatelets; Z79.899 Other long term (current) drug therapy
CPT/HCPCS: 36415; 70450; 71046; 80053; 81003; 84443; 84484; 85025; 93005

== ENCOUNTER 2021-07-16 12:46 | Emergency (ER) | payer MEDICARE ==
[2021-07-16] MEDS ORDERED: Iopamidol 370 76% 100 ML VIAL FS ONE (12:47)
[2021-07-16] MEDS ORDERED: Fluorescein Opthalmic Strip ONE ×2 (13:30→13:45)
[2021-07-16] MEDS ORDERED: Tetracaine 0.5% PF 4 ML BOT ONE ×2 (13:30→13:46)
[2021-07-16 14:15] LABS: #Basophils 0.1 thou/uL (0.0-0.2); #Eosinphils 0.2 thou/uL (0.0-0.7); #Lymphocytes 1.1 thou/uL (1.20-3.40); #Monocytes 0.4 thou/uL (0.11-0.59); #Neutrophils 3.7 thou/uL (1.40-6.50); %Basophils 1.5 % (0.0-1.0); %Lymphocytes 19.6 % (21.0-51.0); %Monocytes 7.1 % (0.0-10.0); %Neutrophils 67.9 % (42.0-75.0); Hemoglobin 16.6 g/dL (14.0-18.0); Mean Corpuscular HGB CONC 31.4 g/dL (32.0-36.0); Mean Corpuscular Hemoglobin 26.3 pg (27.0-31.0); Mean Corpuscular Volume 83.9 fL (78.0-98.0); Mean Platelet Volume 6.3 fL (7.4-10.4); Platelet Count 358 thou/uL (130-400); RBC Distribution Width 16.2 % (11.5-14.5); White Blood Cell (WBC) Count 5.4 thou/uL (4.8-10.8)
[2021-07-16] MEDS ORDERED: Morphine 4 MG/ML VIAL ONE (14:16)
[2021-07-16 14:30] LABS: ALT (SGPT) 27 U/L (8-55); AST (SGOT) 35 U/L (5-34); Albumin 4.9 g/dL (3.4-4.8); Alkaline Phosphatase 83 U/L (40-110); Anion Gap 16 mmol/L (10-20); BUN (Urea Nitrogen) 15 mg/dL (8.4-25.7); Bilirubin, Total 0.6 mg/dL (0.2-1.2); Calc. Creatinine Clearance 0 mL/min (70-130); Calcium 10.1 mg/dL (7.8-10.44); Carbon Dioxide 25 mmol/L (23-31); Chloride 103 mmol/L (98-107); Globulin 4.1 g/dL (2.4-3.5); Glucose 96 mg/dL (80-115); Potassium 3.8 mmol/L (3.5-5.1); Sodium 140 mmol/L (136-145)
[2021-07-16] MEDS ORDERED: Cyclopentolate 1% Opth Drop 2 ML BOT ONE (16:27)
== END 2021-07-16 17:00 | disposition home or self-care (01) ==
LOC: BURERS 12:46
DX: H20.00 Unspecified acute and subacute iridocyclitis (principal)
CPT/HCPCS: 70487; 80053; 85025; 96374; J2270; Q9967

== ENCOUNTER 2021-07-30 08:25 | Emergency (ER) | payer MEDICARE ==
[2021-07-30] MEDS ORDERED: Aspirin Chewable 81 MG TAB ONE (08:52)
[2021-07-30] MEDS ORDERED: Ondansetron PF 4 MG/2 ML Vial ONE (08:52)
[2021-07-30] MEDS ORDERED: Nitroglycerin 0.4 MG TAB 1 EACH ONE (08:52)
[2021-07-30 08:58] LABS: Hemoglobin 15.8 g/dL (14.0-18.0); Mean Corpuscular HGB CONC 32.5 g/dL (32.0-36.0); Mean Corpuscular Hemoglobin 26.9 pg (27.0-31.0); Mean Corpuscular Volume 82.7 fL (78.0-98.0); Mean Platelet Volume 6.6 fL (7.4-10.4); Platelet Count 358 thou/uL (130-400); RBC Distribution Width 15.7 % (11.5-14.5); Red Blood Cell (RBC) Count 5.88 mill/uL (4.70-6.10); White Blood Cell (WBC) Count 7.3 thou/uL (4.8-10.8)
[2021-07-30 09:09] LABS: ALT (SGPT) 12 U/L (8-55); AST (SGOT) 18 U/L (5-34); Albumin 4.4 g/dL (3.4-4.8); Alkaline Phosphatase 73 U/L (40-110); Anion Gap 16 mmol/L (10-20); BUN (Urea Nitrogen) 15 mg/dL (8.4-25.7); Bilirubin, Total 0.5 mg/dL (0.2-1.2); Calc. Creatinine Clearance 0 mL/min (70-130); Calcium 9.3 mg/dL (7.8-10.44); Carbon Dioxide 26 mmol/L (23-31); Chloride 100 mmol/L (98-107); Globulin 3.9 g/dL (2.4-3.5); Glucose 103 mg/dL (80-115); Lipase 28 U/L (8-78); Protein, Total 8.3 g/dL (5.8-8.1); Sodium 139 mmol/L (136-145)
[2021-07-30 09:18] LABS: Anisocytosis SLIGHT = 6-15 cells (100X) (0-5/hpf); Eosinophils 2 % (0-10); Lymphocytes 66 % (21-51); MDiff Complete? YES; Monocytes 4 % (0-10); Neutrophil 28 % (42-75); Platelet Morphology Comment Appears Adequate
[2021-07-30] MEDS ORDERED: Potassium Chloride 20 MEQ TAB ONE (09:22)
[2021-07-30 09:32] LABS: Magnesium 1.9 mg/dL (1.6-2.6)
[2021-07-30] MEDS ORDERED: Fentanyl 100 MCG/2 ML VIAL ONE (10:11)
[2021-07-30 12:17] LABS: Troponin I Less than 0.010 ng/mL (< 0.028)
== END 2021-07-30 13:00 | disposition short-term general hospital (02) ==
LOC: BURERS 08:25
DX: R07.2 Precordial pain (principal); E78.5 Hyperlipidemia, unspecified; I10 Essential (primary) hypertension; Z79.899 Other long term (current) drug therapy
CPT/HCPCS: 36415; 71045; 80053; 83690; 83735; 84484; 85025; 93005; 94760; 96374; 96375; J2405; J3010

== ENCOUNTER 2021-08-03 09:58 | Emergency (ER) | payer MEDICARE ==
[2021-08-03] MEDS ORDERED: Tetracaine 0.5% PF 4 ML BOT ONE (10:12)
[2021-08-03] MEDS ORDERED: Fluorescein Opthalmic Strip ONE (10:12)
[2021-08-03] MEDS ORDERED: HYDROcodone/Acetaminophen 5/325 mg Tablet ONE (10:24)
[2021-08-03] MEDS ORDERED: Cyclopentolate 1% Opth Drop 2 ML BOT ONE (10:24)
[2021-08-03 10:54] LABS: Anion Gap 16 mmol/L (10-20); BUN (Urea Nitrogen) 15 mg/dL (8.4-25.7); Calc. Creatinine Clearance 0 mL/min (70-130); Calcium 9.4 mg/dL (7.8-10.44); Carbon Dioxide 25 mmol/L (23-31); Chloride 104 mmol/L (98-107); Glucose 110 mg/dL (80-115); Potassium 3.7 mmol/L (3.5-5.1); Sodium 141 mmol/L (136-145)
== END 2021-08-03 11:15 | disposition home or self-care (01) ==
LOC: BURERS 09:58
DX: H20.9 Unspecified iridocyclitis (principal); I10 Essential (primary) hypertension; E78.5 Hyperlipidemia, unspecified; I25.10 Atherosclerotic heart disease of native coronary artery without angina pectoris; Z79.02 Long term (current) use of antithrombotics/antiplatelets; Z79.82 Long term (current) use of aspirin; Z79.899 Other long term (current) drug therapy
CPT/HCPCS: 36415; 80048; 99283

== ENCOUNTER 2021-09-30 12:17 | Emergency (ER) | payer MEDICARE ==
[2021-09-30] MEDS ORDERED: ALPRAZolam 0.5 MG TAB ONE (13:03)
== END 2021-09-30 14:50 | disposition home or self-care (01) ==
LOC: BURERS 12:17
DX: F41.9 Anxiety disorder, unspecified (principal)

== ENCOUNTER 2021-10-03 22:07 | Emergency (ER) | payer MEDICARE ==
[2021-10-03] MEDS ORDERED: Lorazepam 0.5 MG TAB ONE (23:27)
== END 2021-10-03 23:30 | disposition home or self-care (01) ==
LOC: BURERS 22:07
DX: G47.00 Insomnia, unspecified (principal); I25.10 Atherosclerotic heart disease of native coronary artery without angina pectoris; E11.9 Type 2 diabetes mellitus without complications; I10 Essential (primary) hypertension; Z79.02 Long term (current) use of antithrombotics/antiplatelets
CPT/HCPCS: 99283

== ENCOUNTER 2021-11-04 15:58 | Emergency (ER) | payer MEDICARE ==
[2021-11-04] MEDS ORDERED: ALPRAZolam 0.5 MG TAB ONE (16:33)
[2021-11-04 16:46] LABS: #Basophils 0.1 thou/uL (0.0-0.2); #Eosinphils 0.1 thou/uL (0.0-0.7); #Lymphocytes 2.8 thou/uL (1.20-3.40); #Monocytes 0.5 thou/uL (0.11-0.59); #Neutrophils 2.9 thou/uL (1.40-6.50); %Basophils 1.9 % (0.0-1.0); %Eosinophils 1.9 % (0.0-10.0); %Lymphocytes 44.1 % (21.0-51.0); %Monocytes 7.5 % (0.0-10.0); %Neutrophils 44.6 % (42.0-75.0); Hemoglobin 14.6 g/dL (14.0-18.0); Mean Corpuscular HGB CONC 33.2 g/dL (32.0-36.0); Mean Corpuscular Hemoglobin 28.5 pg (27.0-31.0); Mean Platelet Volume 6.2 fL (7.4-10.4); Platelet Count 420 thou/uL (130-400); RBC Distribution Width 15.1 % (11.5-14.5); Red Blood Cell (RBC) Count 5.12 mill/uL (4.70-6.10); White Blood Cell (WBC) Count 6.4 thou/uL (4.8-10.8)
[2021-11-04 16:50] LABS: Bilirubin Negative (Negative); Blood, Urine Negative (Negative); Clarity Clear (Clear); Glucose, Urine (Dipstick) Negative (Negative); Ketone, Urine Negative (Negative); Leukocyte Negative (Negative); Nitrite Negative (Negative); Protein, Urine (Dipstick) Negative (Neg-Trace); Specific Gravity, Urine 1.015 (1.005-1.030); pH, Urine 5.5 (5.0-9.0)
[2021-11-04 16:59] LABS: Acetaminophen Less than 10.0 mcg/mL (10.0-30.0); Alcohol Less than 10 mg/dL (Less than 10); Salicylate Less than 8.0 mg/dL (15.0-30.0)
[2021-11-04 17:01] LABS: ALT (SGPT) 14 U/L (8-55); AST (SGOT) 16 U/L (5-34); Albumin 4.7 g/dL (3.4-4.8); Alkaline Phosphatase 70 U/L (40-110); Amphetamine Not Detected (NotDetected); Anion Gap 12 mmol/L (10-20); BUN (Urea Nitrogen) 10 mg/dL (8.4-25.7); Barbiturates Screen Not Detected (NotDetected); Benzodiazepine Screen Detected (NotDetected); Bilirubin, Total 0.6 mg/dL (0.2-1.2); Calc. Creatinine Clearance 0 mL/min (70-130); Calcium 9.9 mg/dL (7.8-10.44); Carbon Dioxide 28 mmol/L (23-31); Chloride 104 mmol/L (98-107); Cocaine Metabolite Screen Not Detected (NotDetected); Estimated GFR 65; Globulin 3.7 g/dL (2.4-3.5); Glucose 121 mg/dL (80-115); Medtox Control Line Valid? VALID (VALID); Methadone Not Detected (NotDetected); Methamphetamine Not Detected (NotDetected); Opiate Screen Detected (NotDetected); Oxycodone Screen Not Detected (NotDetected); Phencyclidine (PCP) Not Detected (NotDetected); Protein, Total 8.4 g/dL (5.8-8.1); Sodium 140 mmol/L (136-145); THC/Cannabinoid Screen Not Detected (NotDetected); Tricyclic Screen Detected (NotDetected)
== END 2021-11-04 20:52 | disposition home or self-care (01) ==
LOC: BURERS 15:58
DX: F41.9 Anxiety disorder, unspecified (principal); F43.10 Post-traumatic stress disorder, unspecified; E11.9 Type 2 diabetes mellitus without complications; I25.10 Atherosclerotic heart disease of native coronary artery without angina pectoris; I10 Essential (primary) hypertension
CPT/HCPCS: 36415; 80053; 80306; 80307; 81003; 85025; 99283

== ENCOUNTER 2022-05-30 23:44 | Emergency (ER) | payer MEDICARE ==
[2022-05-31 01:17] LABS: Anion Gap 15 mmol/L (10-20); Carbon Dioxide 24 mmol/L (23-31); Chloride 102 mmol/L (98-107); Potassium 3.6 mmol/L (3.5-5.1); Sodium 137 mmol/L (136-145)
[2022-05-31 01:18] LABS: ALT (SGPT) 24 U/L (8-55); AST (SGOT) 27 U/L (5-34); Alkaline Phosphatase 78 U/L (40-110); BUN (Urea Nitrogen) 13 mg/dL (8.4-25.7); Bilirubin, Total 0.6 mg/dL (0.2-1.2); Calc. Creatinine Clearance 0 mL/min (70-130); Estimated GFR 80; Glucose 77 mg/dL (80-115)
[2022-05-31 01:19] LABS: Hemoglobin 17.1 g/dL (14.0-18.0); Red Blood Cell (RBC) Count 5.99 mill/uL (4.70-6.10); White Blood Cell (WBC) Count 6.2 10x3/uL (4.8-10.8)
[2022-05-31 01:20] LABS: #Eosinphils 0.2 thou/uL (0.0-0.7); #Lymphocytes 3.2 thou/uL (1.20-3.40); #Monocytes 0.4 thou/uL (0.11-0.59); #Neutrophils 2.3 thou/uL (1.40-6.50); %Eosinophils 2.8 % (0.0-10.0); %Lymphocytes 51.3 % (21.0-51.0); %Monocytes 6.7 % (0.0-10.0); %Neutrophils 36.3 % (42.0-75.0); Mean Corpuscular HGB CONC 33.8 g/dL (32.0-36.0); Mean Corpuscular Hemoglobin 28.6 pg (27.0-31.0); Mean Corpuscular Volume 84.5 fl (78.0-98.0); Mean Platelet Volume 7.6 fL (7.4-10.4); Platelet Count 367 10x3/uL (130-400); RBC Distribution Width 14.3 % (11.5-14.5)
[2022-05-31 01:21] LABS: #Basophils 0.2 thou/uL (0.0-0.2)
== END 2022-05-31 01:23 | disposition home or self-care (01) ==
LOC: BURERS 23:44
DX: E86.0 Dehydration (principal); M79.10 Myalgia, unspecified site; I10 Essential (primary) hypertension; E11.9 Type 2 diabetes mellitus without complications; I25.10 Atherosclerotic heart disease of native coronary artery without angina pectoris; F17.210 Nicotine dependence, cigarettes, uncomplicated
CPT/HCPCS: 71045; 80053; 83880; 84484; 85025; 93005

== ENCOUNTER 2023-01-23 04:21 | Emergency (ER) | payer MEDICARE ==
[2023-01-23] MEDS ORDERED: Bupivacaine 0.5% 10 ML VIAL ONE (04:35)
[2023-01-23] MEDS ORDERED: Penicillin V Potassium 250 MG TAB ONE (05:01)
== END 2023-01-23 05:04 | disposition home or self-care (01) ==
LOC: BURERS 04:21
DX: K02.9 Dental caries, unspecified (principal); I10 Essential (primary) hypertension; E11.9 Type 2 diabetes mellitus without complications; F17.210 Nicotine dependence, cigarettes, uncomplicated; Z79.82 Long term (current) use of aspirin; Z79.02 Long term (current) use of antithrombotics/antiplatelets; Z79.84 Long term (current) use of oral hypoglycemic drugs
CPT/HCPCS: 64400; J3490

== ENCOUNTER 2023-07-11 22:40 | Emergency (ER) | payer MEDICARE | END 2023-07-12 00:38 | disposition home or self-care (01) | LOC: BURERS 22:40 | DX: M54.9 Dorsalgia, unspecified (principal); F41.9 Anxiety disorder, unspecified; I11.0 Hypertensive heart disease with heart failure; I50.9 Heart failure, unspecified; R73.03 Prediabetes; I25.10 Atherosclerotic heart disease of native coronary artery without angina pectoris; Z79.02 Long term (current) use of antithrombotics/antiplatelets; Z79.84 Long term (current) use of oral hypoglycemic drugs; Z79.82 Long term (current) use of aspirin | CPT/HCPCS: 99283 ==

== ENCOUNTER 2023-09-28 14:26 | Emergency (ER) | payer MEDICARE | END 2023-09-28 14:54 | disposition home or self-care (01) | LOC: BURERS 14:26 | DX: M79.675 Pain in left toe(s) (principal); G89.29 Other chronic pain; I25.10 Atherosclerotic heart disease of native coronary artery without angina pectoris; I25.2 Old myocardial infarction; I11.0 Hypertensive heart disease with heart failure; I50.9 Heart failure, unspecified; F17.200 Nicotine dependence, unspecified, uncomplicated; E11.9 Type 2 diabetes mellitus without complications; Z79.02 Long term (current) use of antithrombotics/antiplatelets | CPT/HCPCS: 99283 ==

== ENCOUNTER 2023-12-23 20:17 | Emergency (ER) | payer OTHER ==
[2023-12-23] MEDS ORDERED: ALPRAZolam 0.5 MG TAB ONE (20:35)
== END 2023-12-23 20:50 | disposition home or self-care (01) ==
LOC: BURERS 20:17
DX: F41.9 Anxiety disorder, unspecified (principal); I25.10 Atherosclerotic heart disease of native coronary artery without angina pectoris; I25.2 Old myocardial infarction; I11.0 Hypertensive heart disease with heart failure; I50.9 Heart failure, unspecified; I73.9 Peripheral vascular disease, unspecified; Z95.5 Presence of coronary angioplasty implant and graft; Z55.6 Problems related to health literacy; Z79.01 Long term (current) use of anticoagulants
CPT/HCPCS: 99283

== ENCOUNTER 2024-01-19 14:43 | Emergency (ER) | payer OTHER ==
[2024-01-19 15:01] LABS: #Basophils 0.1 thou/uL (0.0-0.2); #Lymphocytes 2.3 thou/uL (1.20-3.40); #Monocytes 0.5 thou/uL (0.11-0.59); #Neutrophils 3.5 thou/uL (1.40-6.50); %Basophils 1.8 % (0.0-1.0); %Eosinophils 0.7 % (0.0-10.0); %Lymphocytes 35.7 % (21.0-51.0); %Monocytes 7.3 % (0.0-10.0); %Neutrophils 54.6 % (42.0-75.0); Hematocrit 47.1 % (42.0-52.0); Hemoglobin 15.2 g/dL (14.0-18.0); Mean Corpuscular HGB CONC 32.3 g/dL (32.0-36.0); Mean Corpuscular Hemoglobin 28.1 pg (27.0-31.0); Mean Platelet Volume 6.5 fL (7.4-10.4); Platelet Count 392 10x3/uL (130-400); RBC Distribution Width 12.1 % (11.5-14.5); Red Blood Cell (RBC) Count 5.41 mill/uL (4.70-6.10); White Blood Cell (WBC) Count 6.4 10x3/uL (4.8-10.8)
[2024-01-19 15:19] LABS: ALT (SGPT) 15 U/L (8-55); AST (SGOT) 17 U/L (5-34); Albumin 4.2 g/dL (3.4-4.8); Alkaline Phosphatase 45 U/L (40-110); Anion Gap 14 mmol/L (10-20); BUN (Urea Nitrogen) 16 mg/dL (8.4-25.7); Bilirubin, Total 0.6 mg/dL (0.2-1.2); Calc. Creatinine Clearance 0 mL/min (70-130); Calcium 10.1 mg/dL (7.8-10.44); Carbon Dioxide 20 mmol/L (23-31); Chloride 108 mmol/L (98-107); Estimated GFR 53; Globulin 3.9 g/dL (2.4-3.5); Glucose 76 mg/dL (80-115); Protein, Total 8.1 g/dL (5.8-8.1); Sodium 138 mmol/L (136-145); Troponin I Less than 0.010 ng/mL (< 0.028)
[2024-01-19] MEDS ORDERED: Lorazepam 1 MG TAB ONE (15:54)
[2024-01-19] MEDS ORDERED: Aspirin Chewable 81 MG TAB ONE (15:54)
[2024-01-19] MEDS ORDERED: ALPRAZolam 0.5 MG TAB PO SCH (17:00)
== END 2024-01-19 16:58 | disposition home or self-care (01) ==
LOC: BURERS 14:43
DX: R07.9 Chest pain, unspecified (principal); I25.10 Atherosclerotic heart disease of native coronary artery without angina pectoris; I11.0 Hypertensive heart disease with heart failure; I50.9 Heart failure, unspecified; I25.2 Old myocardial infarction; F17.210 Nicotine dependence, cigarettes, uncomplicated; Z95.5 Presence of coronary angioplasty implant and graft
CPT/HCPCS: 71045; 80053; 83880; 84484; 85025; 93005

== ENCOUNTER 2024-01-30 19:11 | Emergency (ER) | payer OTHER ==
[2024-01-30] MEDS ORDERED: ALPRAZolam 0.5 MG TAB ONE (20:00)
[2024-01-30] MEDS ORDERED: HYDROcodone/Acetaminophen 10/325 mg Tablet ONE (20:00)
== END 2024-01-30 20:57 | disposition home or self-care (01) ==
LOC: BURERS 19:11
DX: G89.18 Other acute postprocedural pain (principal); M79.652 Pain in left thigh; I11.0 Hypertensive heart disease with heart failure; I50.9 Heart failure, unspecified; I25.10 Atherosclerotic heart disease of native coronary artery without angina pectoris; I73.9 Peripheral vascular disease, unspecified; I25.2 Old myocardial infarction; F17.210 Nicotine dependence, cigarettes, uncomplicated; Z55.6 Problems related to health literacy; Z79.82 Long term (current) use of aspirin; Z79.899 Other long term (current) drug therapy
CPT/HCPCS: 99283

== ENCOUNTER 2024-10-26 22:04 | Emergency (ER) | payer OTHER ==
[2024-10-26 22:29] LABS: Hematocrit 43.7 % (42.0-52.0); Hemoglobin 15.3 g/dL (14.0-18.0); Mean Corpuscular Hemoglobin 29.9 pg (27.0-31.0); Mean Corpuscular Volume 85.3 fl (78.0-98.0); Platelet Count 391 10x3/uL (130-400); Red Blood Cell (RBC) Count 5.12 mill/uL (4.70-6.10); White Blood Cell (WBC) Count 6.0 10x3/uL (4.8-10.8)
[2024-10-26] MEDS ORDERED: Nitroglycerin 0.4 MG TAB 1 EACH ONE (22:35)
[2024-10-26] MEDS ORDERED: Nitroglycerin 2% Ointment 1 INCH/1 GM Packet ONE (22:35)
[2024-10-26] MEDS ORDERED: Aspirin Chewable 81 MG TAB ONE (22:35)
[2024-10-26 22:40] LABS: ALT (SGPT) 12 U/L (Less than 45); AST (SGOT) 27 U/L (11-34); Albumin 4.6 g/dL (3.1-4.5); Alkaline Phosphatase 47 U/L (40-110); Anion Gap 17 mmol/L (10-20); BUN (Urea Nitrogen) 19 mg/dL (8.4-25.7); Bilirubin, Total 0.8 mg/dL (0.3-1.2); Calc. Creatinine Clearance 0 mL/min (70-130); Calcium 9.7 mg/dL (7.8-10.44); Carbon Dioxide 20 mmol/L (23-31); Chloride 108 mmol/L (98-107); Globulin 3.6 g/dL (2.4-3.5); Glucose 109 mg/dL (83-110); Potassium 4.3 mmol/L (3.5-5.1); Sodium 141 mmol/L (136-145)
[2024-10-26 22:42] LABS: Troponin I Less than 0.010 ng/mL (< 0.028)
== END 2024-10-27 01:30 | disposition short-term general hospital (02) ==
LOC: BURERS 22:04
DX: R07.2 Precordial pain (principal); I11.0 Hypertensive heart disease with heart failure; I50.9 Heart failure, unspecified; E11.51 Type 2 diabetes mellitus with diabetic peripheral angiopathy without gangrene; I25.2 Old myocardial infarction; F17.210 Nicotine dependence, cigarettes, uncomplicated; Z86.73 Personal history of transient ischemic attack (TIA), and cerebral infarction without residual deficits
CPT/HCPCS: 71045; 80053; 83880; 84484; 85025; 93005; 96374; 99285; J2270

== ENCOUNTER 2024-11-30 14:55 | Emergency (ER) | payer OTHER ==
[2024-11-30] MEDS ORDERED: ALPRAZolam 0.5 MG TAB ONE (15:59)
== END 2024-11-30 16:05 | disposition home or self-care (01) ==
LOC: BURERS 14:55
DX: F41.9 Anxiety disorder, unspecified (principal); I11.0 Hypertensive heart disease with heart failure; I50.9 Heart failure, unspecified; E11.51 Type 2 diabetes mellitus with diabetic peripheral angiopathy without gangrene; I25.2 Old myocardial infarction; F17.210 Nicotine dependence, cigarettes, uncomplicated; Z86.73 Personal history of transient ischemic attack (TIA), and cerebral infarction without residual deficits
CPT/HCPCS: 99283

== ENCOUNTER 2024-12-02 16:22 | Emergency (ER) | payer OTHER ==
[2024-12-02] MEDS ORDERED: ALPRAZolam 0.5 MG TAB ONE (16:57)
== END 2024-12-02 17:17 | disposition home or self-care (01) ==
LOC: BURERS 16:22
DX: F41.9 Anxiety disorder, unspecified (principal); I25.10 Atherosclerotic heart disease of native coronary artery without angina pectoris; I25.2 Old myocardial infarction; I11.0 Hypertensive heart disease with heart failure; I50.9 Heart failure, unspecified; F17.210 Nicotine dependence, cigarettes, uncomplicated; Z86.73 Personal history of transient ischemic attack (TIA), and cerebral infarction without residual deficits
CPT/HCPCS: 99283

== ENCOUNTER 2025-01-28 17:42 | Emergency (ER) | payer OTHER ==
[2025-01-28] MEDS ORDERED: ALPRAZolam 0.5 MG TAB ONE (18:31)
== END 2025-01-28 18:55 | disposition home or self-care (01) ==
LOC: BURERS 17:42
DX: F41.9 Anxiety disorder, unspecified (principal); I11.0 Hypertensive heart disease with heart failure; I50.9 Heart failure, unspecified; I25.10 Atherosclerotic heart disease of native coronary artery without angina pectoris; E11.9 Type 2 diabetes mellitus without complications; F17.210 Nicotine dependence, cigarettes, uncomplicated; Z86.73 Personal history of transient ischemic attack (TIA), and cerebral infarction without residual deficits; Z79.899 Other long term (current) drug therapy
CPT/HCPCS: 99283

== ENCOUNTER 2025-02-20 18:56 | Emergency (ER) | payer OTHER, SELFPAY ==
[2025-02-20] MEDS ORDERED: ALPRAZolam 0.5 MG TAB ONE (19:32)
== END 2025-02-20 19:44 | disposition home or self-care (01) ==
LOC: BURERS 18:56
DX: F41.9 Anxiety disorder, unspecified (principal); E11.51 Type 2 diabetes mellitus with diabetic peripheral angiopathy without gangrene; I11.0 Hypertensive heart disease with heart failure; I50.9 Heart failure, unspecified; E78.5 Hyperlipidemia, unspecified; I25.10 Atherosclerotic heart disease of native coronary artery without angina pectoris; Z86.73 Personal history of transient ischemic attack (TIA), and cerebral infarction without residual deficits; Z79.899 Other long term (current) drug therapy
CPT/HCPCS: 99283

== ENCOUNTER 2025-03-02 13:00 | Emergency (ER) | payer MEDICARE, OTHER ==
[2025-03-02] MEDS ORDERED: ALPRAZolam 0.5 MG TAB ONE (13:26)
== END 2025-03-02 13:29 | disposition home or self-care (01) ==
LOC: BURERS 13:00
DX: F41.9 Anxiety disorder, unspecified (principal); Z76.0 Encounter for issue of repeat prescription; I11.0 Hypertensive heart disease with heart failure; I50.9 Heart failure, unspecified; I25.10 Atherosclerotic heart disease of native coronary artery without angina pectoris; I25.2 Old myocardial infarction; E11.9 Type 2 diabetes mellitus without complications; F17.210 Nicotine dependence, cigarettes, uncomplicated; Z86.73 Personal history of transient ischemic attack (TIA), and cerebral infarction without residual deficits; Z95.5 Presence of coronary angioplasty implant and graft
CPT/HCPCS: 99281